=== PATIENT | male | born 1975 | race Caucasian/White ===

== ENCOUNTER 2017-03-30 09:59 | Emergency (ER) | payer OTHER | END 2017-03-30 11:30 | disposition home or self-care (01) | LOC: ER1 09:59 | DX: E10.622 Type 1 diabetes mellitus with other skin ulcer (principal); E78.5 Hyperlipidemia, unspecified; K21.9 Gastro-esophageal reflux disease without esophagitis; J44.9 Chronic obstructive pulmonary disease, unspecified; I10 Essential (primary) hypertension; F17.200 Nicotine dependence, unspecified, uncomplicated; Z79.4 Long term (current) use of insulin; Z79.899 Other long term (current) drug therapy | CPT/HCPCS: 99283 ==

== ENCOUNTER 2021-05-19 17:04 | Inpatient (IN) | payer OTHER ==
[~2021-05-19] VITALS: Ht 177.8 cm; Wt 68.0 kg
[~2021-05-19 17:04] MED LIST: BUPROPION XL150 MG PO; ELIQUIS5 MG PO; FAMOTIDINE20 MG PO; GABAPENTIN600 MG PO; LISINOPRIL20 MG PO
[2021-05-19 18:25] LABS: HEMOGLOBIN 9.4 gm/dl (14.0-17.5); RED BLOOD COUNT 3.38 M/UL (4.20-5.50); WHITE BLOOD COUNT 9.8 K/UL (4.5-11.0)
[2021-05-20 03:40] LABS: HEMOGLOBIN 8.6 gm/dl (14.0-17.5); RED BLOOD COUNT 3.1 M/UL (4.20-5.50); WHITE BLOOD COUNT 7.6 K/UL (4.5-11.0)
[2021-05-20 04:33] LABS: BUN/CREATININE RATIO 20 (0-10)
[2021-05-20] MEDS ORDERED: NOVOLOG FL100 UNIT/1 SC (07:06)
[2021-05-20] MEDS ORDERED: BASAGLAR K100 UNIT/1 SQ (07:11)
[2021-05-20] MEDS ORDERED: WELLBUTRIN XL150 MG PO (09:48)
[2021-05-20] MEDS ORDERED: OMEPRAZOLE20 M2 PO (09:48)
[2021-05-20] MEDS ORDERED: SEROQUEL200 MG PO (09:50)
[2021-05-20] MEDS ORDERED: NOVOLOG FL100 UNIT/1 INJ (10:17)
[2021-05-21 06:09] LABS: BUN/CREATININE RATIO 12 (0-10)
[2021-05-22 03:04] LABS: HEMOGLOBIN 9.7 gm/dl (14.0-17.5); WHITE BLOOD COUNT 6.8 K/UL (4.5-11.0)
[2021-05-22 03:17] LABS: BUN/CREATININE RATIO 14 (0-10); RED BLOOD COUNT 3.48 M/UL (4.20-5.50)
[2021-05-23 04:15] LABS: HEMOGLOBIN 9.1 gm/dl (14.0-17.5); RED BLOOD COUNT 3.28 M/UL (4.20-5.50); WHITE BLOOD COUNT 7.5 K/UL (4.5-11.0)
[2021-05-23 04:37] LABS: BUN/CREATININE RATIO 9 (0-10)
--- NOTE | 2021-05-24 05:40 | NUR ---
PATIENT REFUSED DRESSING CHANGE.
--- NOTE | 2021-05-25 04:04 | NUR ---
PATIENT REFUSED DRESSING CHANGE.
--- NOTE | 2021-05-25 22:29 | NUR ---
PT IS REFUSING ALL IV ANTIBIOTICS STATES THEY GIVE HIM INDIGESTION AND CAUSES VOMITING. PATIENT REFUSED PRN PHENERGRAN WELL REFUSED HIS SURGICIAL DRESSING CHANGE. PATIENT REFUSED TO HAVE VITALS TAKEN WELL.
[2021-05-26 08:03] LABS: HEMOGLOBIN 9.9 gm/dl (14.0-17.5); RED BLOOD COUNT 3.56 M/UL (4.20-5.50); WHITE BLOOD COUNT 6.3 K/UL (4.5-11.0)
[2021-05-26 08:28] LABS: BUN/CREATININE RATIO 14 (0-10)
[2021-05-27 06:37] LABS: HEMOGLOBIN 9.9 gm/dl (14.0-17.5); RED BLOOD COUNT 3.54 M/UL (4.20-5.50); WHITE BLOOD COUNT 6.1 K/UL (4.5-11.0)
[2021-05-27 07:18] LABS: BUN/CREATININE RATIO 16 (0-10)
[2021-05-28 06:43] LABS: HEMOGLOBIN 9.9 gm/dl (14.0-17.5); RED BLOOD COUNT 3.54 M/UL (4.20-5.50); WHITE BLOOD COUNT 6.9 K/UL (4.5-11.0)
[2021-05-28 07:00] LABS: BUN/CREATININE RATIO 20 (0-10)
[2021-05-28] MEDS ORDERED: BASAGLAR K100 UNIT/1 SQ (15:03)
[2021-05-28] MEDS ORDERED: AUGMENTIN 875-1 EACH PO (15:03)
[2021-05-28] MEDS ORDERED: PERCOCET 7.5-31 EACH PO (15:06)
== END 2021-05-28 18:17 | disposition home or self-care (01) | DRG 617 ==
LOC: ER1 17:04 → MED SURG 4 21:03 → CDU 21:03 → MED SURG 4 05-20 14:44
PROVIDERS: Internal Medicine; Physician Assistant Medical; Podiatrist Foot & Ankle Surgery; Urology; ADMIT Internal Medicine
PROC: 0Y6Q0Z0 Detachment at Left 1st Toe, Complete, Open Approach (ICD-10-PCS; principal; 2021-05-21 17:45)
DX: E10.69 Type 1 diabetes mellitus with other specified complication (principal); M86.8X7 Other osteomyelitis, ankle and foot; M62.82 Rhabdomyolysis; E87.1 Hypo-osmolality and hyponatremia; E87.2 Acidosis; E10.52 Type 1 diabetes mellitus with diabetic peripheral angiopathy with gangrene; Z20.822 Contact with and (suspected) exposure to COVID-19; L03.032 Cellulitis of left toe; E10.621 Type 1 diabetes mellitus with foot ulcer; L97.529 Non-pressure chronic ulcer of other part of left foot with unspecified severity; N18.9 Chronic kidney disease, unspecified; R79.89 Other specified abnormal findings of blood chemistry; G47.00 Insomnia, unspecified; F17.210 Nicotine dependence, cigarettes, uncomplicated; F19.10 Other psychoactive substance abuse, uncomplicated; E10.65 Type 1 diabetes mellitus with hyperglycemia; E10.42 Type 1 diabetes mellitus with diabetic polyneuropathy; N17.9 Acute kidney failure, unspecified; B95.62 Methicillin resistant Staphylococcus aureus infection as the cause of diseases classified elsewhere; Z79.4 Long term (current) use of insulin; Z91.14 Patient's other noncompliance with medication regimen; Z89.431 Acquired absence of right foot; Z59.0 Homelessness
CPT/HCPCS: 36415; 73630; 73700; 80048; 80053; 80202; 81001; 82550; 82553; 82962; 83036; 83605; 83735; 85025; 85027; 85652; 86140; 87040; 87070; 87077; 87186; 87205; 96365; 96368; 96375; 97161; 97165; 99285; A6243; G0378; J0690; J1100; J1650; J2001; J2270; J2405; J2543; J2550; J2700; J2704; J2795; J3370; J7030; J7070; J7120; Q0177; U0002

== ENCOUNTER 2021-06-29 11:27 | Emergency (ER) | payer OTHER ==
[~2021-06-29 11:27] MED LIST changes: +AUGMENTIN 875-1 EACH PO; +BASAGLAR K100 UNIT/1 SQ; +NOVOLOG FL100 UNIT/1 INJ; +NOVOLOG FL100 UNIT/1 SC; +OMEPRAZOLE20 M2 PO; +PERCOCET 7.5-31 EACH PO; +SEROQUEL200 MG PO; +WELLBUTRIN XL150 MG PO
[2021-06-29] MEDS ORDERED: BACTRIM DS TAB1 EACH PO (13:11)
[2021-06-29] MEDS ORDERED: MOBIC15 MG PO (13:11)
== END 2021-06-29 13:26 | disposition home or self-care (01) ==
LOC: ER1 11:27
DX: L03.115 Cellulitis of right lower limb (principal); E11.42 Type 2 diabetes mellitus with diabetic polyneuropathy; F17.200 Nicotine dependence, unspecified, uncomplicated
CPT/HCPCS: 99281